=== PATIENT | female | born 2000 | race Caucasian/White ===

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

== ENCOUNTER 2018-01-15 19:57 | Observation (INO) | payer OTHER ==
--- NOTE | 2018-01-15 20:04 | PDOC ---
Rapid Medical Evaluation Chief Complaint: Labor Assessment Time Seen by Provider: 01/15/18 20:01 Medical Evaluation: Allergies Allergy/AdvReac Type Severity Reaction Status Date / Time chocolate flavor Allergy Mild Rash Verified 05/29/17 12:18 strawberry Allergy Mild Rash Verified 05/29/17 12:18 01/15/18 20:02 I have performed a brief in person evaluation of this patient. The patient present with a CC of: Abdominal pain Pertinent PE findings: Lungs Clear Heart RRR Abd: Soft, non distended. Bowel sounds in all four quadrants. No pain upon palpation. MS: Moves all extremities without difficulty. Neuro: Alert and oriented Psych: Appropriate affect I have ordered the following: Abdominal protocol The patient will proceed to the ED for further evaluation: Discharge Disposition - Diagnosis Abdominal pain affecting - Referrals - Patient Instructions - Post Discharge Activity
[2018-01-15 20:07] VITALS: BMI 20.5
--- NOTE | 2018-01-15 20:40 | PDOC ---
History of Present Illness - General Chief Complaint: Labor Assessment Stated Complaint: CHEST PAIN/9 WKS Time Seen by Provider: 01/15/18 20:01 - History of Present Illness Initial Comments: The patient is a 17 at 9 weeks by US who presents for evaluation of abdominal pain with associated nausea and generalized weakness. 2w of epigastric abdominal pain that radiates to her back described as sharp. Associated N/V. Can't quantify number of vomiting episodes today. Denies fevers/chills, diarrhea, vaginal bleeding, dysuria, hematuria, blood in stool. New onset left sided chest pressure/burning and shortness of breath during episodes of emesis. Denies current chest pain or shortness of breath. Reports unintentional weight loss Last saw OB Friday, had normal US per OB -Has Rx maalox with little relief 01/15/18 20:34 Past History - Past Medical History Allergies/Adverse Reactions: Allergies Allergy/AdvReac Type Severity Reaction Status Date / Time chocolate flavor Allergy Mild Rash Verified 05/29/17 12:18 strawberry Allergy Mild Rash Verified 05/29/17 12:18 Home Medications: Ambulatory Orders Ferrous Sulfate [Feosol] 325 mg PO DAILY 05/08/17 Vitamins (Sjr) - 1 tab PO DAILY 05/08/17 Asthma: No Cancer: No Cardiac Disorders: No COPD: No Diabetes: No HTN: No Seizures: No Thyroid Disease: No Other medical history: LMP 10/2017 - Suicide/Smoking/Psychosocial Hx Smoking History: Never smoked Have you smoked in the past 12 months: No Information on smoking cessation initiated: No Hx Alcohol Use: No Drug/Substance Use Hx: No Substance Use Type: None Hx Substance Use Treatment: No Review of Systems - Review of Systems Able to Perform ROS?: Yes Comments:: GENERAL/CONSTITUTIONAL: No fever or chills. No weakness HEAD, EYES, EARS, NOSE AND THROAT: No change in vision. No ear pain or discharge. No sore throat CARDIOVASCULAR: No chest pain or shortness of breath RESPIRATORY: No cough, wheezing, or hemoptysis GASTROINTESTINAL: No nausea, vomiting, diarrhea or constipation GENITOURINARY: No dysuria, frequency, or change in urination MUSCULOSKELETAL: No joint or muscle swelling or pain. No neck or back pain SKIN: No rash NEUROLOGIC: No headache, vertigo, loss of consciousness, or change in strength/ sensation HEMATOLOGIC/LYMPHATIC: No anemia, easy bleeding, or history of blood clots ALLERGIC/IMMUNOLOGIC: No hives or skin allergy 01/15/18 20:35 *Physical Exam - Vital Signs Last Vital Signs Temp Pulse Resp BP Pulse Ox 98.7 F 111 H 17 136/87 100 01/15/18 20:04 01/15/18 20:04 01/15/18 20:04 01/15/18 20:04 01/15/18 20:04 - Physical Exam Comments: GENERAL: Awake, alert, and fully oriented, in no acute distress HEAD: No signs of trauma, normocephalic, atraumatic EYES: PERRL, EOMI, sclera anicteric, conjunctiva clear w/ mild pallor ENT: Hearing grossly normal, nares patent, oropharynx clear without exudates. Dry mucosa NECK: Normal ROM, supple, no lymphadenopathy LUNGS: No distress, speaks full sentences, clear to auscultation bilaterally HEART:Regular rate and rhythm, normal S1 and S2, no murmurs appreciated, peripheral pulses normal and equal bilaterally ABDOMEN: Soft, epigastric and RUQ TTP without rebound or guarding, normoactive bowel sounds EXTREMITIES : Normal inspection, Normal range of motion, no edema. No clubbing or cyanosis NEUROLOGICAL: Cranial nerves II through XII grossly intact. Normal speech, normal gait, no focal sensorimotor deficits SKIN: Warm, Dry, normal turgor, no rashes or lesions noted 01/15/18 20:36 ED Treatment Course - LABORATORY CBC & Chemistry Diagram: 01/15/18 20:39 01/15/18 20:39 Medical Decision Making - Medical Decision Making The patient is a 17 at 9wks by LMP who presents for evaluation of epigastric abdominal pain w/ intractable emesis for 2 weeks Ddx: hyperemesis gravidum, PUD, biliary dz; considered but less likely vascular dz ED Course CMP, CBC, UA ECG RUQ US 01/15/18 20:36 GI coctail 1L NS Ofirmev 1g IV once Reglan 10mg IV once Hypokalemia to 3.4 [place] 2+ Transaminitis 01/15/18 21:18 Plan for admission for likely hyperemesis gravidum RUQ US pending Plan discussed w/ patient who is in agreement and verbalized understanding 01/15/18 21:44 US w/ cholelithiasis w/o cholecystitis Dispo: Admit 01/15/18 23:49 *DC/Admit/Observation/Transfer Diagnosis at time of Disposition: Abdominal pain affecting - Referrals Referrals: Indra Capps MD [Primary Care Provider] - - Patient Instructions - Post Discharge Activity
[2018-01-15 20:51] LABS: BASO % 0.6 % (0-2.0); EOS % 0.3 % (0-4.5); HEMATOCRIT 37.9 % (32.4-45.2); HEMOGLOBIN 12.9 GM/dL (10.7-15.3); MCH 27.2 pg (25.7-33.7); MCHC 34.1 g/dl (32.0-36.0); MEAN CELL VOLUME 79.8 fl (80-96); MEAN PLT VOLUME 8.1 fl (7.5-11.1); MONO % 6.5 % (3.8-10.2); NEUT % 76.6 % (42.8-82.8); PLATELET COUNT 283 K/MM3 (134-434); RBC 4.75 M/mm3 (3.60-5.2); RDW 15.2 % (11.6-15.6); WHITE BLOOD COUNT 7.9 K/mm3 (4.0-10.0)
[2018-01-15] MEDS ORDERED: SODIUM CHLORIDE 0.9% 500 ML INFUS.BAG IV ONE (21:18)
[2018-01-15] MEDS ORDERED: METOCLOPRAMIDE HCL INJECTION 10 MG/2 ML VIAL IVPUSH ONE (21:19)
--- NOTE | 2018-01-15 21:20 | PDOC ---
Attending Attestation - Resident Resident Name: Jonas Castano - ED Attending Attestation I have performed the following: I have examined & evaluated the patient, The case was reviewed & discussed with the resident, I agree w/resident's findings & plan, Exceptions are as noted - HPI HPI: 01/15/18 22:25 Ms Hou is a 17 yo at 9 weeks by US who presents to the ER with a complaint of abdominal pain, nausea and vomiting She has had epigastric and RUQ abdominal pain for the past 2 weeks Pt has had inability to tolerate po No fevers or chills Pt was seen by OB who started Maalox She states this has not helped her symptoms She did eat today - pancakes, [place] islander fried She was unable to tolerate this and vomited it all up No she is also vomiting up water Pt actually came in to the ER today because she vomited multiple times today, and then developed left sided chest pain which she described as squeezing, lasted 20 minutes and self resolved, this happened approximately 1.5 hours ago and has not occurred since 01/15/18 22:27 01/15/18 22:31 - Physicial Exam PE: 01/15/18 22:29 On examination: Awake and alert Dry mucous membranes RRR CTA b/l epigastric area tender to palpation, RUQ tender to palpation No lower abdominal tenderness to palpation - Medical Decision Making 01/15/18 22:25 Laboratory Tests 01/15/18 01/15/18 01/15/18 20:39 20:39 20:39 WBC 7.9 Hgb 12.9 Hct 37.9 D Plt Count 283 D Sodium 138 Potassium 3.4 L Chloride 100 Carbon Dioxide 25 BUN 11 Creatinine 0.6 Random Glucose 72 L AST 339 H ALT 680 H Alkaline Phosphatase 213 H Lipase 181 Beta HCG, Quant 60381.5 Ur Leukocyte Esterase Urine WBC (Auto) Urine RBC (Auto) 01/15/18 21:08 WBC Hgb Hct Plt Count Sodium Potassium Chloride Carbon Dioxide BUN Creatinine Random Glucose AST ALT Alkaline Phosphatase Lipase Beta HCG, Quant Ur Leukocyte Esterase 1+ H Urine WBC (Auto) 19 Urine RBC (Auto) 1 01/15/18 22:39 Labs are concerning because of transaminitis US pending Pt has already had US demonstrating IUP as an outpatient 01/16/18 00:33 US - Cholelithiasis, CBD distended EKG: NSR rate of 91 bpm, axis nml, intervals nml, no st elevations or depression Admitted to hospitalist clinical impression: cholelithiasis, initial presentation CBD dilitation, initial presentation Hyperemesis gravidarium, initial presentation
[2018-01-15 21:21] LABS: URINE APPEARANCE CLEAR; URINE COLOR AMBER; URINE GLUCOSE (UA) NEGATIVE (NEGATIVE); URINE KETONE 2+ (NEGATIVE); URINE LEUK ESTERASE 1+ (NEGATIVE); URINE NITRITE NEGATIVE (NEGATIVE); URINE PROTEIN 1+ (NEGATIVE); URINE UROBILINOGEN 4.0 E.U/dl mg/dL (0.2-1.0)
[2018-01-15 21:23] LABS: ALBUMIN 3.8 g/dl (3.4-5.0); ALK PHOS 213 U/L (45-117); ANION GAP 14 MMOL/L (8-16); BLOOD UREA NITROGEN 11 mg/dL (7-18); CALCIUM 9.2 mg/dL (8.5-10.1); CHLORIDE 100 mmol/L (98-107); CO2 25 mmol/L (21-32); CREATININE 0.6 mg/dL (0.55-1.3); GLUCOSE,RANDOM 72 mg/dL (74-106); LIPASE 181 U/L (73-393); POTASSIUM 3.4 mmol/L (3.5-5.1); SGOT/AST 339 U/L (15-37); SGPT/ALT 680 U/L (13-61); SODIUM 138 mmol/L (136-145); TOT PROT 7.9 g/dl (6.4-8.2)
[2018-01-15 21:28] LABS: EPI CELLS FEW /HPF (FEW); URINE MUCUS MANY
[2018-01-15] MEDS ORDERED: MAG HYDROX/AL HYDROX/SIMETH -MYLANTA- ORAL SUSPENSION PO ONE (21:31)
[2018-01-15] MEDS ORDERED: FAMOTIDINE 20 MG/50 ML IVPB 20 MG/50 ML MG IVPB ONE ×2 (21:31→22:09)
[2018-01-15] MEDS ORDERED: SUCRALFATE 1 GM TABLET (FP) PO ONE (21:33)
[2018-01-15] MEDS ORDERED: METOCLOPRAMIDE HCL INJECTION 10 MG/2 ML VIAL ONE (21:36)
[2018-01-15] MEDS ORDERED: MAG HYDROX/AL HYDROX/SIMETH 30 ML UNIT-DOSE CUP ONE (22:09)
[2018-01-15] MEDS ORDERED: SUCRALFATE 1 GM TABLET (FP) ONE (22:09)
--- NOTE | 2018-01-16 00:27 | HP ---
CHIEF COMPLAINT: nausea, intractible vomiting PCP: HISTORY OF PRESENT ILLNESS: Patient is a female s/p 1 in 2018 presents with complaint of 2 weeks nausea and intractable vomiting. Denies inciting event. Describes nausea as consistent throughout the day, and unable to tolerate any oral intake. She endorses numerous episodes of vomiting (unable to count) every day for the past two weeks, described as bilious, non bloody. Associated with sharp epigastric pain, worsened with vomiting. She endorses that she can feel the pain in the back, however denies radiation of the pain. She has seen her OBGYN this past Friday who performed ultrasound confirming at 9 weeks. Was prescribed Mylanta which was not palliative. Only palliative feature is taking warm bath. She endorses weakness, and is upset that she cannot meat pickler her 7 year old son due to the weakness. Denies fevers, chills, shortness of breath, chest pain, palpitations, diarrhea, fall, loss of consciousness. Last bowel movement two days ago, solid without hematochezia, or melena. Urinating without dysuria, hematuria, urgency, or increased frequency. 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 7 year old son born via section 05/2017. ER course was notable for: (1) Sucralfate, Famotidine, Metoclopramide, Mag hygrox (2) Normal saline Recent Travel: denies PAST MEDICAL HISTORY: denies PAST SURGICAL HISTORY: 05/2017 Social History: Smoking: denies smoking history Alcohol: denies any alcohol use Drugs: Denies history of marijuana and illicit drug use Family History: Significant for paternal grandmother had cholelithiasis, uncertain if she had cholecystectomy. Allergies chocolate flavor Allergy (Mild, Verified 05/29/17 12:18) Rash strawberry Allergy (Mild, Verified 05/29/17 12:18) Rash HOME MEDICATIONS: Home Medications Medication Instructions Recorded Ferrous Sulfate [Feosol] 325 mg PO DAILY 05/08/17 Vitamins (Sjr) - 1 tab PO DAILY 05/08/17 REVIEW OF SYSTEMS CONSTITUTIONAL: Admits: generalized weakness, malaise. Absent: fever, chills, diaphoresis HEENT: Absent: rhinorrhea, nasal congestion, throat pain, throat swelling, difficulty swallowing, mouth swelling, visual changes CARDIOVASCULAR: Absent: chest pain, syncope, palpitations, irregular heart rate, lightheadedness , peripheral edema RESPIRATORY: Absent: cough, shortness of breath, dyspnea with exertion, orthopnea, wheezing, stridor, hemoptysis GASTROINTESTINAL: Admits: abdominal pain, nausea, vomiting. Absent: abdominal distension, diarrhea , constipation, melena, hematochezia GENITOURINARY: Absent: dysuria, frequency, urgency, hesitancy, hematuria, flank pain, genital pain MUSCULOSKELETAL: Absent: myalgia, arthralgia, joint swelling, back pain, neck pain SKIN: Absent: rash, itching, pallor HEMATOLOGIC/IMMUNOLOGIC: Absent: easy bleeding, easy bruising, lymphadenopathy, frequent infections NEUROLOGIC: Absent: headache, focal weakness or paresthesias, dizziness, unsteady gait, seizure, mental status changes, bladder or bowel incontinence PSYCHIATRIC: Absent: anxiety, depression, suicidal or homicidal ideation, hallucinations. PHYSICAL EXAMINATION Vital Signs - 24 hr 01/15/18 01/15/18 20:04 21:42 Temperature 98.7 F Pulse Rate 111 H Respiratory 17 Rate Blood Pressure 136/87 O2 Sat by Pulse 100 100 Oximetry (%) GENERAL: Awake, alert, and fully oriented, in no acute distress. HEAD: Normal with no signs of trauma. EYES: Pupils equal, round and reactive to light, extraocular movements intact, sclera anicteric, conjunctiva clear. No lid lag. EARS, NOSE, THROAT: Ears normal, nares patent, oropharynx clear without exudates. Moist mucous membranes. NECK: Normal range of motion, supple without lymphadenopathy, JVD, or masses. LUNGS: Breath sounds equal, clear to auscultation bilaterally. No wheezes, and no crackles. No accessory muscle use. HEART: Regular rate and rhythm, normal S1 and S2 without murmur, rub or gallop. ABDOMEN: Soft, not distended, tender to palpation of epigastrum. Normoactive bowel sounds x4 quadrants. No guarding, no rebound tenderness. No hepatomegaly palpated or percussed. Negative Schwab's sign. RECTAL: Patient refused rectal exam upon my encounter. MUSCULOSKELETAL: Normal range of motion at all joints. No bony deformities or tenderness. No CVA tenderness. UPPER EXTREMITIES: 2+ radial pulses b/l. Warm, well-perfused. LOWER EXTREMITIES: 2+ dorsalis pedis pulses b/l. Warm, well-perfused. No calf tenderness. No peripheral edema b/l. NEUROLOGICAL: Cranial nerves II-XII intact. Normal speech. Strength 5/5 b/l upper and lower extremities b/l. PSYCHIATRIC: Cooperative. Good eye contact. Appropriate mood and affect upon my encounter today. SKIN: Warm, dry. Horizontal scar from prior cesarian section noted healed, clean, dry, nondraining. Laboratory Results - last 24 hr 01/15/18 01/15/18 01/15/18 20:39 20:39 20:39 WBC 7.9 RBC 4.75 Hgb 12.9 Hct 37.9 D MCV 79.8 L MCH 27.2 MCHC 34.1 RDW 15.2 Plt Count 283 D MPV 8.1 Absolute Neuts (auto) 6.1 Neutrophils % 76.6 Lymphocytes % 16.0 D Monocytes % 6.5 Eosinophils % 0.3 Basophils % 0.6 Nucleated RBC % 0 Sodium 138 Potassium 3.4 L Chloride 100 Carbon Dioxide 25 Anion Gap 14 BUN 11 Creatinine 0.6 Creat Clearance w eGFR > 60 Random Glucose 72 L Calcium 9.2 Total Bilirubin 1.0 AST 339 H ALT 680 H Alkaline Phosphatase 213 H Total Protein 7.9 Albumin 3.8 Lipase 181 Beta HCG, Quant 08320.5 Urine Color Urine Appearance Urine pH Ur Specific [place] Urine Protein Urine Glucose (UA) Urine Ketones Urine Blood Urine Nitrite Urine Bilirubin Urine Urobilinogen Ur Leukocyte Esterase Urine WBC (Auto) Urine RBC (Auto) Ur Epithelial Cells Urine Mucus 01/15/18 21:08 WBC RBC Hgb Hct MCV MCH MCHC RDW Plt Count MPV Absolute Neuts (auto) Neutrophils % Lymphocytes % Monocytes % Eosinophils % Basophils % Nucleated RBC % Sodium Potassium Chloride Carbon Dioxide Anion Gap BUN Creatinine Creat Clearance w eGFR Random Glucose Calcium Total Bilirubin AST ALT Alkaline Phosphatase Total Protein Albumin Lipase Beta HCG, Quant Urine Color Rhea Urine Appearance Clear Urine pH 5.0 Ur Specific [place] 1.025 Urine Protein 1+ H Urine Glucose (UA) Negative Urine Ketones 2+ H Urine Blood Negative Urine Nitrite Negative Urine Bilirubin 2.0 Urine Urobilinogen 4.0 e.u/dl H Ur Leukocyte Esterase 1+ H Urine WBC (Auto) 19 Urine RBC (Auto) 1 Ur Epithelial Cells Few Urine Mucus Many ASSESSMENT/PLAN: Patient is a female s/p 1 in 2018 presents with complaint of 2 weeks nausea and intractable vomiting. Intractable vomiting -Likely secondary to hyperemesis gravidarum, however component of nausea may be due to cholelithiasis. -IV normal saline at 100mL/ hour -NPO -Pain control with Ofirmev 1000mg IV Q6H PRN pain 6-10 -Phenergen 12.5mg IVPB Q6H PRN for nausea, vomiting -F/U OBGYN consult (Dr. An) Cholecystitis, possible choledocholithiasis -Ultrasound shows cholelithiasis without cholecystitis. Common bile duct dilated to 1cm, however no stone noted within the duct. -F/U MRCP to evaluate for presence of stones within CBD -F/U GI consult (Dr. Aguirre) -F/U general surgery consult (Dr. Dupont) FEN -IV normal saline at 100mL/ hour -Follow CMP -NPO for now pending surgical and gastroenterology evaluation Prophylaxis -SCDs, TEDs b/l lower extremities. Disposition Continue care in medical-surgical floor Visit type - Emergency Visit Emergency Visit: Yes ED Registration Date: 01/15/18 Care time: The patient presented to the Emergency Department on the above date and was hospitalized for further evaluation of their emergent condition. - New Patient This patient is new to me today: Yes Date on this admission: 01/16/18 - Critical Care Critical Care patient: No
[2018-01-16] MEDS ORDERED: ACETAMINOPHEN 1000 MG/100 ML VIAL (NON FORMULARY) IVPB PRN (00:54)
[2018-01-16] MEDS ORDERED: PROMETHAZINE HCL 25 MG/1 ML VIAL IVPB PRN (00:54)
[2018-01-16] MEDS ORDERED: SODIUM CHLORIDE 1,000 ML IV SCH ×2 (01:00)
--- NOTE | 2018-01-16 03:21 | PN ---
Teaching Attending Note Name of Resident: Josefina Menendez ATTENDING PHYSICIAN STATEMENT I saw and evaluated the patient. I reviewed the resident's note and discussed the case with the resident. I agree with the resident's findings and plan as documented. SUBJECTIVE: Patient is a 17 y/o HF; she is 9 weeks by US done this week and is . Please refer to resident H and P for full history, but in essence she has had 2 weeks of worsening nausea and vomitting that progressed to intractable nausea today prompting her to go to the ER. She has been unable to tolerate PO. Complained of vague chest tightness with the nausea flares. She is found to have a 1cm dilated CBD on ultrasound with +stones but no signs of acute infection in conjunction with elevated LFTs giving rise to concern for possible choledocholithiasis. No prior hepatobiliary problems before this. She will be admitted to medicine with OBGYN, GI, surgical consultation. OBJECTIVE: VSS, labs and imaging reviewed NAD, AAOx3 RRR s1/2 no mgr Lungs CTAB with sym CW expansion Tender in the epigastric region, no distention, no rebound or guarding CN2-12 grossly intact without any FND Normal mood, appropriate affect RUQ US shows CBD 1cm with cholelithiasis but NO cholecystitis LFTs elevated ASSESSMENT AND PLAN: Ms. Hou is a 17 y/o female presenting with abdominal pain found to have elevated transaminases and dilated CBD to 1cm suspicious for choledocholithiasis. 1) Abdominal Pain with Intractable Nausea and vomitting -Due to ?choledocholithiasis without cholecystitis vs. biliary colic vs. Hyperemesis Gravidarum -Place on IV fluids, pain control with IV APAP, nausea control with phenergan -Consult GI, Sgy, OBGYN -MRCP ordered. Will defer on abx for now unless she becomes febrile or clinically warranted. Slight tachy on presentation was likley due to dehydration with acute nausea. -Trend CMP 2) ?Hyperemesis -Consult OB; IVF and phenergan in interem 3) -Consult OB -Avoid teratogenic meds Full Code
--- NOTE | 2018-01-16 08:58 | CONSULT ---
- Consultation REQUESTING PROVIDER: CONSULT REQUEST: We have been asked to surgically evaluate this patient for ( specify). PCP:Sondra Mirza MD HISTORY OF PRESENT ILLNESS: 17 y/o female ~ 9 weeks gravid presented w/nausea and vomiting and epigastric pain of # days progressive duration PMHx: hypertension PSHx: C-S Home Medications Medication Instructions Recorded Ferrous Sulfate [Feosol] 325 mg PO DAILY 05/08/17 Vitamins (Sjr) - 1 tab PO DAILY 05/08/17 Allergies Allergy/AdvReac Type Severity Reaction Status Date / Time chocolate flavor Allergy Mild Rash Verified 05/29/17 12:18 strawberry Allergy Mild Rash Verified 05/29/17 12:18 REVIEW OF SYSTEMS: CONSTITUTIONAL: Absent: fever, chills, diaphoresis, generalized weakness, malaise, loss of appetite, weight change CARDIOVASCULAR: Absent: chest pain, syncope, palpitations, irregular heart rate, lightheadedness , peripheral edema RESPIRATORY: Absent: cough, shortness of breath, dyspnea with exertion, wheezing, stridor, hemoptysis GASTROINTESTINAL: Absent: abdominal pain, abdominal distension, nausea, vomiting, diarrhea, constipation, melena, hematochezia GENITOURINARY: Absent: dysuria, frequency, urgency, hesitancy, hematuria, flank pain, genital pain MUSCULOSKELETAL: Absent: myalgia, arthralgia, joint swelling, back pain, neck pain SKIN: Absent: rash, itching, pallor HEMATOLOGIC/IMMUNOLOGIC: Absent: easy bleeding, easy bruising, lymphadenopathy NEUROLOGIC: Absent: headache, focal weakness, paresthesias, dizziness, unsteady gait, seizure, mental status changes, bladder or bowel incontinence PSYCHIATRIC: Absent: anxiety, depression, suicidal or homicidal ideation, hallucinations. PHYSICAL EXAM: GENERAL: Awake, alert, and fully oriented, in no acute distress. HEAD: Normal with no signs of trauma. EYES: sclera anicteric, conjunctiva clear. NECK: Normal ROM, supple without lymphadenopathy, JVD, or masses. ABDOMEN: Soft, nontender, not distended, normoactive bowel sounds, no guarding, no rebound, no masses. No organomegaly. No hernias. MUSCULOSKELETAL: Normal ROM at all joints. No bony deformities or tenderness. No CVA tenderness. UPPER EXTREMITIES: 2+ pulses, warm, well-perfused. No cyanosis. Cap refill <2 seconds. No peripheral edema. LOWER EXTREMITIES: 2+ pulses, warm, well-perfused. No calf tenderness. No peripheral edema. NEUROLOGICAL: Normal speech, gait not observed. PSYCH: Cooperative. Good eye contact. Appropriate mood and affect. SKIN: Warm, dry, normal turgor, no rashes or lesions noted. Vital Signs Temperature 98.1 F 01/16/18 06:46 Pulse Rate 96 H 01/16/18 06:46 Respiratory Rate 18 01/16/18 06:46 Blood Pressure 135/78 01/16/18 06:46 O2 Sat by Pulse Oximetry (%) 98 01/16/18 06:46 Lab Results WBC 7.9 K/mm3 (4.0-10.0) 01/15/18 20:39 RBC 4.75 M/mm3 (3.60-5.2) 01/15/18 20:39 Hgb 12.9 GM/dL (10.7-15.3) 01/15/18 20:39 Hct 37.9 % (32.4-45.2) D 01/15/18 20:39 MCV 79.8 fl (80-96) L 01/15/18 20:39 MCHC 34.1 g/dl (32.0-36.0) 01/15/18 20:39 RDW 15.2 % (11.6-15.6) 01/15/18 20:39 Plt Count 283 K/MM3 (134-434) D 01/15/18 20:39 Sodium 138 mmol/L (136-145) 01/15/18 20:39 Potassium 3.4 mmol/L (3.5-5.1) L 01/15/18 20:39 Chloride 100 mmol/L (98-107) 01/15/18 20:39 Carbon Dioxide 25 mmol/L (21-32) 01/15/18 20:39 Anion Gap 14 MMOL/L (8-16) 01/15/18 20:39 BUN 11 mg/dL (7-18) 01/15/18 20:39 Creatinine 0.6 mg/dL (0.55-1.3) 01/15/18 20:39 Random Glucose 72 mg/dL (74-106) L 01/15/18 20:39 Calcium 9.2 mg/dL (8.5-10.1) 01/15/18 20:39 US reviewed IMP: cholelithiaisi; r/o choledocholithiasis PLAN: NPO/IVF/MRCP; will f/u. Jose Luis Dupont MD FACS
[2018-01-16 09:17] LABS: HEMATOCRIT 35.4 % (32.4-45.2); MCH 27.7 pg (25.7-33.7); MCHC 33.9 g/dl (32.0-36.0); MEAN CELL VOLUME 81.5 fl (80-96); MEAN PLT VOLUME 8.2 fl (7.5-11.1); PLATELET COUNT 241 K/MM3 (134-434); RBC 4.34 M/mm3 (3.60-5.2); RDW 15.1 % (11.6-15.6); WHITE BLOOD COUNT 8.2 K/mm3 (4.0-10.0)
--- NOTE | 2018-01-16 09:34 | EKG ---
Test Reason : Blood Pressure : / mmHG Vent. Rate : 091 BPM Atrial Rate : 091 BPM P-R Int : 144 ms QRS Dur : 082 ms QT Int : 360 ms P-R-T Axes : 074 045 044 degrees QTc Int : 442 ms NORMAL SINUS RHYTHM NONSPECIFIC T WAVE ABNORMALITY NO PREVIOUS ECGS AVAILABLE Confirmed by LESLIE MCCOY MD ([id number]) on 01/16/2018 9:33:43 AM Referred By: Confirmed By:LESLIE MCCOY MD
[2018-01-16 09:35] LABS: ALBUMIN 3.4 g/dl (3.4-5.0); ALK PHOS 176 U/L (45-117); ANION GAP 13 MMOL/L (8-16); BLOOD UREA NITROGEN 9 mg/dL (7-18); CALCIUM 8.4 mg/dL (8.5-10.1); CHLORIDE 106 mmol/L (98-107); CO2 20 mmol/L (21-32); CREATININE 0.4 mg/dL (0.55-1.3); GLUCOSE,RANDOM 65 mg/dL (74-106); MAGNESIUM 1.8 mg/dL (1.8-2.4); PHOSPHOROUS 3.3 mg/dL (2.5-4.9); POTASSIUM 3.6 mmol/L (3.5-5.1); SGOT/AST 255 U/L (15-37); SGPT/ALT 587 U/L (13-61); SODIUM 139 mmol/L (136-145); TOT PROT 6.6 g/dl (6.4-8.2)
[2018-01-16 11:59] VITALS: BP 112/62; PULSE 98; TEMP 98.5
== END 2018-01-16 12:04 | disposition short-term general hospital (02) ==
LOC: JER 19:57 → INTOOBSV 23:36 → JERBED 23:36
PROVIDERS: ADMIT Internal Medicine; ATTEND Internal Medicine
PROC: 3E033GC Introduction of Other Therapeutic Substance into Peripheral Vein, Percutaneous Approach (ICD-10-PCS; principal; 2018-01-15)
PROC: 3E033NZ Introduction of Analgesics, Hypnotics, Sedatives into Peripheral Vein, Percutaneous Approach (ICD-10-PCS; 2018-01-15)
PROC: 3E0337Z Introduction of Electrolytic and Water Balance Substance into Peripheral Vein, Percutaneous Approach (ICD-10-PCS; 2018-01-15)
DX: O99.611 Diseases of the digestive system complicating pregnancy, first trimester (principal); O21.9 Vomiting of pregnancy, unspecified; O26.891 Other specified pregnancy related conditions, first trimester; Z3A.09 9 weeks gestation of pregnancy; R10.9 Unspecified abdominal pain; R74.0 Nonspecific elevation of levels of transaminase and lactic acid dehydrogenase [LDH]
CPT/HCPCS: 36415; 76705-TC; 80053; 81003; 81015; 83690; 83735; 84100; 84702; 85025; 85027; 85379; 93005; 93010; 99284-25; G0378; J0131; J7030

== ENCOUNTER 2018-08-06 11:30 | Inpatient (IN) | payer OTHER ==
[2018-08-06 12:38] VITALS: BMI 24.5
[2018-08-06] MEDS ORDERED: ONDANSETRON 4 MG/2 ML VIAL IVPUSH PRN (12:54)
[2018-08-06] MEDS ORDERED: morphine SULFATE/Preservative Free 0.5 MG/ML (1cc Syringe) EP ONE (12:54)
[2018-08-06] MEDS ORDERED: ceFAZolin SODIUM 1 GM VIAL ONE (13:12)
[2018-08-06] MEDS ORDERED: OXYTOCIN 10 UNITS/ML VIAL ONE (13:34)
[2018-08-06] MEDS ORDERED: ELECTROLYTE-148 SOLN 500 ML IV ONE (14:01)
[2018-08-06] MEDS ORDERED: CITRIC ACID/SODIUM CITRATE 30 ML UNIT-DOSE CUP PO ONE (14:01)
[2018-08-06] MEDS ORDERED: METHYLERGONOVINE MALEATE 0.2 MG/1 ML AMP IM PRN (14:03)
--- NOTE | 2018-08-06 14:09 | HP ---
Past Medical History - Admission Chief Complaint: Previous in labor History of Present Illness: 18 yo @ 38 weeks gestation, with prior admitted for labor pain. She was then prep for repeat . History Source: Patient Limitations to Obtaining History: No Limitations - Past Medical History ...: 2 ...Para: 1 ...Term: 1 ...: 0 ...Spon : 0 ...Induced : 0 ...Multiple Gestation: 0 ...LMP: 11/10/17 ... Weeks Gestation by Dates: 38.4 ...EDC by Dates: 08/16/18 ...EDC by Sono: 08/16/18 - Past Surgical History Past Surgical History: Yes: Hx Myomectomy: No Hx Transabdominal Cerclage: No - Smoking History Smoking history: Never smoked Have you smoked in the past 12 months: No - Alcohol/Substance Use Hx Alcohol Use: No History of Substance Use: reports: None - Social History Usual Living Arrangement: Yes: With Parent History of Recent Travel: No Home Medications - Allergies Allergies/Adverse Reactions: Allergies Allergy/AdvReac Type Severity Reaction Status Date / Time chocolate flavor Allergy Mild Rash Verified 05/29/17 12:18 strawberry Allergy Mild Rash Verified 05/29/17 12:18 - Home Medications Home Medications: Ambulatory Orders Ferrous Sulfate [Feosol] 325 mg PO DAILY 05/08/17 Vitamins (Sjr) - 1 tab PO DAILY 05/08/17 Family Disease History - Family Disease History Family History: Unremarkable Review of Systems - Review of Systems Constitutional: reports: No Symptoms Eyes: reports: No Symptoms HENT: reports: No Symptoms Neck: reports: No Symptoms Cardiovascular: reports: No Symptoms Respiratory: reports: No Symptoms Gastrointestinal: reports: No Symptoms Genitourinary: reports: Pain Neurological: reports: No Symptoms Psychiatric: reports: No Symptoms Pain Intensity: 7 Physical Exam - Maternity Vital Signs: Vital Signs Temperature 98.0 F 08/06/18 12:22 Pulse Rate 81 08/06/18 12:22 Respiratory Rate 20 08/06/18 12:22 Blood Pressure 111/47 L 08/06/18 12:22 O2 Sat by Pulse Oximetry (%) Constitutional: Yes: Well Nourished Eyes: Yes: Conjunctiva Clear HENT: Yes: Atraumatic Neck: Yes: Supple Cardiovascular: Yes: Regular Rate and Rhythm Lungs: Clear to auscultation - Abdominal Exam/OB Number of Fetuses: Single Presentation: Vertex - Vaginal Exam/OB Dilatation (cm): 2 Effacement (%): 70 Amniotic Membrane Status: Intact Station: -2 - Physical Exam ...Motor Strength: WNL Psychiatric: Yes: Alert, Oriented Problem List - Problems (1) Previous section complicating , antepartum condition or complication Code(s): O34.219 - MATERNAL CARE FOR UNSP TYPE SCAR FROM PREVIOUS DEL Assessment/Plan Previous in labor 38 weeks gestation Admit for repeat
--- NOTE | 2018-08-06 14:10 | OP ---
Operative Note - Note: Operative Date: 08/06/18 Pre-Operative Diagnosis: Previous in labor Operation: Repeat Low Transverse Post-Operative Diagnosis: Same as Pre-op Surgeon: Bela An Intake Worker: Rhea Gao Anesthesia: Spinal Specimens Removed: Placenta Estimated Blood Loss (mls): 600
[2018-08-06] MEDS ORDERED: PHENYLEPHRINE HCL 10 MG/1 ML SINGLE DOSE VIAL ONE (14:18)
[2018-08-06 14:42] LABS: VENOUS PC02 52.6 mmHg (41-51); VENOUS PH 7.33 (7.31-7.41)
[2018-08-06 14:43] LABS: VENOUS PO2 18.2 mmHg (30-40)
[2018-08-06] MEDS: OXYTOCIN 20 UNITS in 0.9% NS 20 UNIT/1,000 ML INFUS.BAG IV SCH ×2 (15:00→23:43)
--- NOTE | 2018-08-06 17:01 | SURG ---
Surgery Grain Picker Note Grain Picker: Rhea Gao PA-C Date of Service: 08/06/18 Diagnosis: Previous in labor Procedure: Repeat Low Transverse I was present for the entirety of the operative procedure. For further detail, please refer to operative report. Visit type - Case Type Case Type: ED Admission - Emergency Emergency Visit: Yes ED Registration Date: 08/06/18 Care time: The patient presented to the Emergency Department on the above date and was hospitalized for further evaluation of their emergent condition. - New patient This patient is new to me today: Yes Date on this admission: 08/06/18
[2018-08-07] MEDS: SIMETHICONE 80 MG TAB.CHEW (FP) PO PRN ×2 (03:40→22:21)
[2018-08-07] MEDS: IBUPROFEN 600 MG TABLET (FP) PO PRN ×3 (03:40→22:21)
[2018-08-07] MEDS: OXYTOCIN 20 UNITS in 0.9% NS 20 UNIT/1,000 ML INFUS.BAG IV SCH (08:00)
[2018-08-07 08:06] LABS: BASO % 0.2 % (0-2.0); EOS % 0.4 % (0-4.5); HEMOGLOBIN 7.5 GM/dL (10.7-15.3); LYMPH % 11.1 % (8-40); MCH 22.9 pg (25.7-33.7); MCHC 31.2 g/dl (32.0-36.0); MEAN CELL VOLUME 73.4 fl (80-96); MEAN PLT VOLUME 7.8 fl (7.5-11.1); MONO % 7.3 % (3.8-10.2); PLATELET COUNT 170 K/MM3 (134-434); RBC 3.27 M/mm3 (3.60-5.2); RDW 15.2 % (11.6-15.6); WHITE BLOOD COUNT 12.9 K/mm3 (4.0-10.0)
--- NOTE | 2018-08-07 08:13 | PN ---
Progress Note (short form) - Note Progress Note: Post op day#1.S/P C section under spinal anesthesia with duramorph uneventful.Patient stable and c/o little pain for she is on medication.No any anesthesia related problem.Patient DC from the anesthesia care.
--- NOTE | 2018-08-07 08:27 | PN ---
Post Progress Note - Subjective Subjective: 18 yo Para 2 status post repeat , seen and evaluated. Doing well. Post Day: 1 Type of Delivery: Repeat C/S Vital Signs: Vital Signs Temperature 97.7 F 08/07/18 06:00 Pulse Rate 82 08/07/18 06:00 Respiratory Rate 18 08/07/18 07:00 Blood Pressure 112/61 08/07/18 06:00 O2 Sat by Pulse Oximetry (%) 98 08/06/18 15:30 Breast Exam: Yes: Soft Uterus: Yes: Fundus Firm Incision: Yes: Dressing dry and intact Abdomen/GI: Yes: Abdomen soft, Tolerating PO Lochia: Yes: Rubra Lochia, amount: Small Extremities: Yes: Calves non-tender Activity: Ambulating Problem List - Problems (1) Previous section complicating , antepartum condition or complication Code(s): O34.219 - MATERNAL CARE FOR UNSP TYPE SCAR FROM PREVIOUS DEL (2) Status post repeat low transverse section Code(s): Z98.891 - HISTORY OF UTERINE SCAR FROM PREVIOUS SURGERY Assessment/Plan Status post repeat Ambulation Analgesia as needed Continue routine post op care
[2018-08-07] MEDS: FERROUS SO4 325 MG TABLET (FP) PO SCH ×2 (10:39→22:20)
[2018-08-07] MEDS ORDERED: BISACODYL 10 MG SUPP.RECT RC PRN (14:03)
[2018-08-07] MEDS: oxyCODONE HCL 5 MG TABLET PO PRN ×2 (18:04→22:21)
[2018-08-08] MEDS: OXYTOCIN 20 UNITS in 0.9% NS 20 UNIT/1,000 ML INFUS.BAG IV SCH (01:22)
[2018-08-08] MEDS: oxyCODONE HCL 5 MG TABLET PO PRN ×3 (07:23→22:36)
[2018-08-08] MEDS: SIMETHICONE 80 MG TAB.CHEW (FP) PO PRN (07:23)
[2018-08-08] MEDS: IBUPROFEN 600 MG TABLET (FP) PO PRN ×3 (07:23→22:37)
[2018-08-08] MEDS: FERROUS SO4 325 MG TABLET (FP) PO SCH ×2 (10:37→21:20)
--- NOTE | 2018-08-08 10:38 | PN ---
Progress Note (SOAP) - Subjective Chief Complaint: Pt doing well - Current Medications Current Medications: Active Medications Bisacodyl (Dulcolax Suppository -) 10 mg RC PRN PRN PRN Reason: CONSTIPATION Ferrous Sulfate (Feosol -) 325 mg PO BID ANITA Last Admin: 08/07/18 22:20 Dose: 325 mg Ibuprofen (Motrin -) 600 mg PO Q4H PRN PRN Reason: PAIN LEVEL 1 - 3 Last Admin: 08/08/18 07:23 Dose: 600 mg Methylergonovine Maleate (Methergine Injection -) 0.2 mg IM Q4H PRN PRN Reason: Excessive Bleeding (L&D) Oxycodone HCl (Roxicodone -) 5 mg PO Q4H PRN PRN Reason: PAIN LEVEL 4 - 6 Last Admin: 08/08/18 07:23 Dose: 5 mg Simethicone (Mylicon -) 80 mg PO Q4H PRN PRN Reason: GAS Last Admin: 08/08/18 07:23 Dose: 80 mg - Objective Vital Signs: Vital Signs Temperature 98 F 08/08/18 09:00 Pulse Rate 77 08/08/18 09:00 Respiratory Rate 18 08/08/18 09:00 Blood Pressure 122/72 08/08/18 09:00 O2 Sat by Pulse Oximetry (%) 98 08/06/18 15:30 Constitutional: Yes: Well Nourished, No Distress Neck: Yes: WNL Cardiovascular: Yes: WNL, Regular Rate and Rhythm Respiratory: Yes: WNL ....Post : Yes: Uterus firm, Uterus non-tender Breast(s): Yes: WNL Musculoskeletal: Yes: WNL Extremities: Yes: WNL Wound/Incision: Yes: Steri Strips, Open to air Neurological: Yes: WNL, Alert, Oriented Labs Lab Results: CBC, BMP 08/07/18 07:30 Problem List - Problems (1) Status post repeat low transverse section Code(s): Z98.891 - HISTORY OF UTERINE SCAR FROM PREVIOUS SURGERY Assessment/Plan POD 2 doing well desires to go home in am Plan DC home RTO 1 week
[2018-08-09 07:22] LABS: BASO % 0.1 % (0-2.0); EOS % 0.9 % (0-4.5); HEMOGLOBIN 7.8 GM/dL (10.7-15.3); LYMPH % 22.3 % (8-40); MCH 23.8 pg (25.7-33.7); MCHC 32.3 g/dl (32.0-36.0); MEAN CELL VOLUME 73.4 fl (80-96); MEAN PLT VOLUME 7.8 fl (7.5-11.1); MONO % 5.6 % (3.8-10.2); NEUT % 71.1 % (42.8-82.8); PLATELET COUNT 201 K/MM3 (134-434); RBC 3.27 M/mm3 (3.60-5.2); RDW 15.8 % (11.6-15.6); WHITE BLOOD COUNT 9.1 K/mm3 (4.0-10.0)
[2018-08-09] MEDS: SIMETHICONE 80 MG TAB.CHEW (FP) PO PRN (09:20)
[2018-08-09] MEDS: oxyCODONE HCL 5 MG TABLET PO PRN (09:20)
[2018-08-09] MEDS: FERROUS SO4 325 MG TABLET (FP) PO SCH (09:20)
[2018-08-09] MEDS: IBUPROFEN 600 MG TABLET (FP) PO PRN (09:20)
[2018-08-09 11:16] VITALS: BP 125/76; PULSE 75; TEMP 98.4
--- NOTE | 2018-08-10 19:19 | PATH ---
Surgical Pathology Report Patient Name: MICHAEL CARDOZO Med. Rec. #: [id number] /Age/Gender: 2000 (Age: 18) / F Account: [id number] Location: [facility] OBS/FURNACE FITTER Taken: 08/06/2018 Received: 08/07/2018 Reported: 08/10/2018 Physicians: Bela An M.D. Specimen(s) Received PLACENTA Clinical History CS-06/08 Final Diagnosis PLACENTA, SECTION: 429 G THIRD TRIMESTER PLACENTA WITH TRIVASCULAR UMBILICAL CORD AND UNREMARKABLE PLACENTAL MEMBRANES. Electronically Signed Monica Alejandro M.D. Gross Description The specimen is received fresh labeled placenta and is a 429 gram, 19 x 15 x 1.5 cm. placenta with attached membranes and umbilical cord. The attached membranes are clear and translucent and insert marginally. The umbilical cord measures 20 cm. in length and averages 1.5 cm. in diameter. The cord inserts eccentrically, 5 cm. to the nearest margin. No true knots or strictures are identified. Cut surface of the umbilical cord reveals 3 vessels. The surface is garcia-blue with minimal fibrin deposition and appropriate caliber vessels. The maternal surface is red-brown with focal defects. Sectioning reveals red-brown, spongy parenchyma. No lesions are identified. Testing Engineer sections are submitted in three cassettes as follows: 1- membrane rolls and umbilical cord; 2-3- full thickness sections of placenta. MLSZ/08/07/2018 sanml/08/07/2018
--- NOTE | 2018-08-11 21:01 | OP ---
DATE OF OPERATION: 08/06/2018 PREOPERATIVE DIAGNOSIS: A 38-week gestation with previous section in labor. POSTOPERATIVE DIAGNOSIS: A 38-week gestation with previous section in labor. PROCEDURE: Repeat low transverse section. SURGEON: Bela An MD SEAM STEAMER: CLINTON Parks ANESTHESIA: Spinal. COMPLICATIONS: None. ESTIMATED BLOOD LOSS: 600 mL. DESCRIPTION OF PROCEDURE: Patient was taken to the operating room where spinal anesthesia was administered. Patient was then prepped and draped in proper sterile fashion. A Pfannenstiel skin incision was made and carried down through the underlying layer of fascia. The fascia was incised in the midline and extended laterally. The superior aspect of the fascial incision was then grasped with a Fernandez clamp, elevated, and the rectus muscles dissected off bluntly. Attention was then turned to the inferior aspect of the fascial incision, which in a similar fashion was then grasped with Fernandez clamp, elevated, and the rectus muscle dissected off bluntly. The rectus muscle was then in the midline. The peritoneum identified and entered sharply with the Metzenbaum scissors. The peritoneal incision was extended superiorly and inferiorly with good visualization of the bladder. Then the vesicouterine peritoneum was then grasped with pickups and entered sharply with the Metzenbaum scissors. This incision was extended laterally, and a bladder flap created digitally. The bladder blade was inserted. Then the lower uterine segment was incised using a 10 blade. This incision was extended laterally, and the head delivered atraumatically. Nose and mouth were suctioned and the cord clamped and cut. The infant was handed to the awaiting switchboard mechanic. The placenta was removed manually. The uterus was exteriorized and cleared of all clots and debris. The uterine incision was repaired using 0 Biosyn in a running locked fashion. A second layer of the same suture was used as a means to provide excellent hemostasis. Then, the pelvis was completely irrigated. The uterus was returned to the abdomen. The peritoneum was closed using 2-0 Biosyn. The fascia was reapproximated using 0 Vicryl, and the skin was closed in a subcuticular fashion using 3-0 Vicryl. Patient tolerated procedure well. Patient was taken to PACU in stable condition. PATHOLOGY: Placenta. Gal RUBY/[id number] MTDD
== END 2018-08-09 13:00 | disposition home or self-care (01) | DRG 540 ==
LOC: JLDR 11:30 → J3W 15:45
PROVIDERS: ADMIT Obstetrics & Gynecology; ATTEND Obstetrics & Gynecology
PROC: 10D00Z1 Extraction of Products of Conception, Low, Open Approach (ICD-10-PCS; principal; 2018-08-06)
DX: O34.219 Maternal care for unspecified type scar from previous cesarean delivery (principal); Z3A.38 38 weeks gestation of pregnancy; Z37.0 Single live birth
CPT/HCPCS: 36415; 82803; 85025; 85460; 85461; 86999; 88307-TC

== ENCOUNTER 2021-07-02 07:29 | Emergency (ER) | payer OTHER ==
[2021-07-02 07:42] VITALS: BMI 20.3
[2021-07-02] MEDS ORDERED: FAMOTIDINE 20 MG/50 ML IVPB 20 MG in PREMIX 50 IVPB ONE (07:50)
[2021-07-02] MEDS ORDERED: MAG HYDROX/AL HYDROX/SIMETH -MYLANTA- ORAL SUSPENSION PO ONE (07:50)
[2021-07-02] MEDS ORDERED: ACETAMINOPHEN 1000 MG/100 ML BAG IVPB ONE (07:50)
[2021-07-02] MEDS ORDERED: ONDANSETRON 4 MG/2 ML VIAL IVPB ONE (07:50)
[2021-07-02] MEDS ORDERED: SODIUM CHLORIDE 0.9% 500 ML INFUS.BAG IV ONE ×2 (07:53→09:20)
[2021-07-02] MEDS ORDERED: LIDOCAINE VISCOUS 2% ORAL/TOP 15 ML UNIT-DOSE CUP MM ONE (08:03)
[2021-07-02] MEDS ORDERED: LIDOCAINE VISCOUS 2% ORAL/TOP 15 ML UNIT-DOSE CUP ONE (08:32)
[2021-07-02] MEDS ORDERED: MAG HYDROX/AL HYDROX/SIMETH 30 ML UNIT-DOSE CUP ONE (08:33)
[2021-07-02] MEDS ORDERED: ONDANSETRON 4 MG/2 ML VIAL ONE (08:33)
[2021-07-02] MEDS ORDERED: ACETAMINOPHEN INJECTION 100 ML IVPB ONE (08:33)
[2021-07-02] MEDS ORDERED: FAMOTIDINE 20 MG/50 ML IVPB 20 MG/50 ML MG IVPB ONE (08:46)
[2021-07-02 09:07] LABS: BASO % 0.3 % (0-2.0); EOS % 0.2 % (0-4.5); HEMATOCRIT 39.8 % (32.4-45.2); HEMOGLOBIN 13.2 GM/dL (10.7-15.3); LYMPH % 10.9 % (8-40); MCH 25.4 pg (25.7-33.7); MCHC 33.2 g/dl (32.0-36.0); MEAN CELL VOLUME 76.5 fl (80-96); MEAN PLT VOLUME 8.7 fl (7.5-11.1); MONO % 3.7 % (3.8-10.2); NEUT % 84.9 % (42.8-82.8); PLATELET COUNT 236 10^3/uL (134-434); RDW 15.8 % (11.6-15.6)
[2021-07-02 09:11] LABS: VENOUS BASE EXCESS -0.3 mmol/L (-2-2); VENOUS O2 SATURATION 71.1 % (70-80); VENOUS PH 7.457 (7.310-7.410)
[2021-07-02 09:19] LABS: LACTIC ACID 2.6 mmol/L (0.4-2.0)
[2021-07-02 09:25] LABS: ALBUMIN 4.4 g/dl (3.4-5.0); CALCIUM 9.9 mg/dL (8.5-10.1)
[2021-07-02 09:26] LABS: BLOOD UREA NITROGEN 14.5 mg/dL (7-18)
[2021-07-02 09:29] LABS: CREATININE 0.8 mg/dL (0.55-1.3)
[2021-07-02 09:30] LABS: BILIRUBIN,TOTAL 0.8 mg/dL (0.2-1); TOT PROT 8.1 g/dl (6.4-8.2)
[2021-07-02 09:32] LABS: HCG,QUALITATIVE URINE Negative
[2021-07-02 09:34] LABS: EPI CELLS 29 /uL (0-25.1); HYALINE CASTS 3 /uL (0-3.1); PH,URINE >= 9.0 (5.0-8.0); URINE APPEARANCE CLEAR; URINE BACTERIA 134 /uL (0-1359); URINE BILIRUBIN NEGATIVE (NEGATIVE); URINE COLOR YELLOW; URINE GLUCOSE (UA) NEGATIVE (NEGATIVE); URINE KETONE 2+ (NEGATIVE); URINE LEUK ESTERASE NEGATIVE (NEGATIVE); URINE NITRITE NEGATIVE (NEGATIVE); URINE PROTEIN 1+ (NEGATIVE); URINE RBC 3 /uL (0-23.9); URINE WBC 19 /uL (0-25.8)
[2021-07-02] MEDS ORDERED: POTASSIUM CHLORIDE TABS 20 MEQ TABLET.ER (FP) PO ONE ×2 (09:48→10:04)
[2021-07-02] MEDS ORDERED: METOCLOPRAMIDE HCL INJECTION 10 MG/2 ML VIAL IVPUSH ONE (10:18)
[2021-07-02 10:41] VITALS: TEMP 97.6
[2021-07-02 10:43] LABS: LACTIC ACID 2.2 mmol/L (0.4-2.0)
[2021-07-02] MEDS ORDERED: METOCLOPRAMIDE HCL INJECTION 10 MG/2 ML VIAL ONE (11:06)
[2021-07-02] MEDS ORDERED: KETOROLAC TROMETHAMINE 15 MG/ML VIAL IVPUSH ONE (11:14)
[2021-07-02] MEDS ORDERED: KETOROLAC TROMETHAMINE 15 MG/ML VIAL ONE (11:26)
[2021-07-02 12:06] VITALS: BP 122/78; PULSE 80
== END 2021-07-02 13:05 | disposition home or self-care (01) ==
LOC: JER 07:29
PROC: 3E0333Z Introduction of Anti-inflammatory into Peripheral Vein, Percutaneous Approach (ICD-10-PCS; principal; 2021-07-02)
PROC: 3E033GC Introduction of Other Therapeutic Substance into Peripheral Vein, Percutaneous Approach (ICD-10-PCS; 2021-07-02)
PROC: 3E0333Z Introduction of Anti-inflammatory into Peripheral Vein, Percutaneous Approach (ICD-10-PCS; 2021-07-02)
PROC: 3E033GC Introduction of Other Therapeutic Substance into Peripheral Vein, Percutaneous Approach (ICD-10-PCS; 2021-07-02)
DX: R10.13 Epigastric pain (principal)
CPT/HCPCS: 36415; 71046-TC-FY; 74177-TC; 80053; 81003; 82803; 83605; 83690; 84484; 84703; 85025; 93005; 93010; 99285-25; Q9967